=== PATIENT | male | born 1975 | race Two or more races ===

== ENCOUNTER 2017-07-25 03:27 | Emergency (ER) | payer MEDICAID ==
[~2017-07-25] VITALS: Ht 170.2 cm; Wt 108.9 kg
[2017-07-25 03:30] VITALS: BP 158/95
== END 2017-07-25 03:54 | disposition home or self-care (01) ==
LOC: ER 03:27
DX: K08.89 Other specified disorders of teeth and supporting structures (principal); Z60.2 Problems related to living alone
CPT/HCPCS: 99283; A4606; Z7610